=== PATIENT | male | born 1945 | race Caucasian/White ===

== ENCOUNTER → 2016-09-03 | Outpatient (CLI) | payer MEDICARE, BC ==
[2016-09-03 08:53] LABS: CH 34.9; CHCM 35.4; HDW 2.67; HGB 14.5 gm/dL (13.0-17.5); MCH 34.3 pg (25.0-35.0); MCHC 34.6 g/dL (31.0-37.0); MCV 99.1 fL (80.0-100.0); Mean Platelet Volume 8.6; RBC 4.24 m/uL (4.30-5.90); RDW 12.7 % (11.5-15.5); WBC 4.8 k/uL (3.8-10.6)
[2016-09-03 13:01] LABS: ALT 77 U/L (21-72); AST 51 U/L (17-59); Alkaline Phosphatase 74 U/L (38-126); Anion Gap 11 mmol/L; Blood Urea Nitrogen 24 mg/dL (9-20); Calcium 9.5 mg/dL (8.4-10.2); Carbon Dioxide 30 mmol/L (22-30); Chloride 103 mmol/L (98-107); Cholesterol 234 mg/dL (<200); Glucose 90 mg/dL (74-99); HDL Cholesterol 37 mg/dL (40-60); Non-African American GFR(MDRD) 58 (>60 ml/min/1.73 sqM); Potassium 4.8 mmol/L (3.5-5.1); Sodium 144 mmol/L (137-145); Total Bilirubin 1.1 mg/dL (0.2-1.3); Total Protein 7.5 g/dL (6.3-8.2); Triglycerides 259 mg/dL (<150)
[2016-09-03 14:21] LABS: Prostate Specific Antigen 1.37 ng/mL (0.00-4.00)
[2016-09-03 16:04] LABS: Hemoglobin A1C 5.6 % (4.2-6.1)
== END | disposition home or self-care (01) ==
LOC: LABWHC1 08:21
PROVIDERS: ATTEND Urology
DX: E78.5 Hyperlipidemia, unspecified (principal)
CPT/HCPCS: 36415; 80053; 80061; 83036; 84153; 84439; 84443; 85027

== ENCOUNTER → 2016-10-14 | Outpatient (CLI) | payer MEDICARE, BC ==
--- NOTE | 2016-10-14 11:18 | XR ---
EXAMINATION TYPE: XR chest 2V DATE OF EXAM: 10/14/2016 9:42 AM COMPARISON: None HISTORY: 71-year-old male with persistent cough TECHNIQUE: Frontal and lateral views FINDINGS: Heart is normal size. Mild elongation of the thoracic aorta. Pulmonary vasculature within normal limi ts. Scattered mild peribronchial cuffing. Strandy atelectasis in the lower lungs. No consolidation or pleural effusion. IMPRESSION: Some scattered mild peribronchial cuffing could reflect bronchitis or chronic asthma.
== END | disposition home or self-care (01) ==
LOC: RADXRMAIN 09:33
PROVIDERS: ATTEND Family Medicine
DX: R05 Cough (principal)
CPT/HCPCS: 71020

== ENCOUNTER → 2016-11-04 | Outpatient (CLI) | payer MEDICARE, BC | LOC: LABWHC1 09:17 | PROVIDERS: ATTEND Urology | DX: C61 Malignant neoplasm of prostate (principal) | CPT/HCPCS: 36415; 84153 ==

== ENCOUNTER → 2016-11-10 | Outpatient (CLI) | payer MEDICARE, BC ==
[2016-11-10 11:07] LABS: Total Bilirubin 0.9 mg/dL (0.2-1.3); Total Protein 7.7 g/dL (6.3-8.2)
[2016-11-10 13:18] LABS: Bilirubin, Delta 0.3 mg/dL (0.0-0.2)
== END | disposition home or self-care (01) ==
LOC: LABWHC1 10:35
DX: R94.5 Abnormal results of liver function studies (principal)
CPT/HCPCS: 36415; 80076

== ENCOUNTER → 2017-02-06 | Outpatient (CLI) | payer MEDICARE, BC | END | disposition home or self-care (01) | LOC: LABWHC1 09:21 | PROVIDERS: ATTEND Urology | DX: C61 Malignant neoplasm of prostate (principal) | CPT/HCPCS: 36415; 84153 ==

== ENCOUNTER → 2017-05-01 | Outpatient (CLI) | payer MEDICARE, BC ==
[2017-05-01 10:01] LABS: Bilirubin, Delta 0.1 mg/dL (0.0-0.2); Total Protein 7.2 g/dL (6.3-8.2)
== END | disposition home or self-care (01) ==
LOC: LABWHC1 08:57
DX: K76.0 Fatty (change of) liver, not elsewhere classified (principal)
CPT/HCPCS: 36415; 80076

== ENCOUNTER → 2017-09-30 | Outpatient (CLI) | payer MEDICARE, BC ==
[2017-09-30 09:13] LABS: HCT 39.3 % (39.0-53.0); HGB 13.3 gm/dL (13.0-17.5); MCH 33.5 pg (25.0-35.0); MCHC 33.9 g/dL (31.0-37.0); MCV 98.9 fL (80.0-100.0); Mean Platelet Volume 8.2; Platelet Count 192 k/uL (150-450); RBC 3.98 m/uL (4.30-5.90); RDW 12.5 % (11.5-15.5); WBC 3.8 k/uL (3.8-10.6)
[2017-09-30 09:33] LABS: ALT 27 U/L (21-72); AST 32 U/L (17-59); Albumin 4.2 g/dL (3.5-5.0); Alkaline Phosphatase 66 U/L (38-126); Anion Gap 8 mmol/L; Blood Urea Nitrogen 21 mg/dL (9-20); Calcium 9.5 mg/dL (8.4-10.2); Carbon Dioxide 31 mmol/L (22-30); Chloride 102 mmol/L (98-107); Glucose 87 mg/dL (74-99); INR 1.1 (<1.2); Potassium 4.8 mmol/L (3.5-5.1); Prothrombin Time 10.8 sec (9.0-12.0); Sodium 141 mmol/L (137-145); Total Bilirubin 1.1 mg/dL (0.2-1.3); Total Protein 6.9 g/dL (6.3-8.2)
[2017-09-30 09:47] LABS: Appearance,Urine Clear (Clear); Bilirubin,Urine Negative (Negative); Blood,Urine Negative (Negative); Color,Urine Light Yellow; Glucose,Urine (UA) Negative (Negative); Ketones,Urine Negative (Negative); Leukocyte Esterase,Urine Negative (Negative); PH, Urine 6.5 (5.0-8.0); Protein,Urine Negative (Negative); Specific Gravity,Urine 1.008 (1.001-1.035); Urobilinogen,Urine <2.0 mg/dL (<2.0)
== END | disposition home or self-care (01) ==
LOC: LABPAT 08:45
PROVIDERS: ATTEND Orthopaedic Surgery Sports Medicine
DX: Z01.812 Encounter for preprocedural laboratory examination (principal); Z79.01 Long term (current) use of anticoagulants
CPT/HCPCS: 36415; 80053; 80061; 81003; 82306; 84439; 84443; 85027; 85610; 85730; 87070

== ENCOUNTER → 2017-09-30 | Outpatient (CLI) | payer MEDICARE, BC ==
[2017-09-30 09:48] LABS: T4, Free (Free Thyroxine) 1.09 ng/dL (0.78-2.19)
== END | disposition home or self-care (01) ==
LOC: LABWHC1 08:35
PROVIDERS: ATTEND Family Medicine
DX: E78.5 Hyperlipidemia, unspecified (principal); E55.9 Vitamin D deficiency, unspecified
CPT/HCPCS: 36415; 80061; 82306; 84439; 84443

== ENCOUNTER 2017-10-09 07:45 | Day surgery (SDC) | payer MEDICARE, BC ==
[2017-10-05 10:16] VITALS: BMI 29.9
[~2017-10-09 07:45] MED LIST: LACTATED RINGERS 1,000 ML IV SCH; LIDOCAINE 1% 20 ML VIAL (10MG/ML) FOR IV START INTRADERMA PRN
[2017-10-09 08:05] VITALS: RESP 18; TEMP 98.1
[2017-10-09] MEDS ORDERED: fentaNYL (PF) 50 MCG/ML 2 ML AMP ONE (09:08)
[2017-10-09] MEDS ORDERED: PROPOFOL 10 MG/ML 20 ML VIAL IV ONE (09:08)
[2017-10-09] MEDS ORDERED: LIDOCAINE 1% INJ 10MG/ML (20 ML MDV) ONE (09:08)
--- NOTE | 2017-10-09 10:19 | P.PCN ---
Date of Procedure: 10/09/17 Procedure(s) Performed: Procedure: Total colonoscopy. Preoperative diagnosis: Screening for neoplasia, patient has history of polyps. Postoperative diagnosis: 1. Diverticulosis with no evidence of acute diverticulitis or strictures. 2. No polyps or cancer seen. Preparation: HalfLytely prep. Sedation: Was provided by anesthesia. Brief clinical history: The patient is a 72-year-old male who is scheduled for this evaluation for screening for neoplasia because of history of polyps. His last exam was around 5 years ago. The patient reported having had a bout of diverticulitis this summer. At this time, he has no abdominal complaints, bleeding or anemia. Procedure: With the patient on his left lateral decubitus position and after informed consent and adequate sedation the perianal area was inspected and it did not show any fissures or fistulas. There were no masses felt on digital rectal examination. The Olympus CFQ 160L video colonoscope was then inserted in the rectum and the usual fashion and advanced to the cecum. There were multiple diverticular orifices seen scattered mostly on the left side and in the distal transverse colon with no evidence of acute diverticulitis or strictures. The mucosa appeared healthy. No polyps or tumors were seen. I retroflexed the endoscope in the rectum before the endoscope was withdrawn. Low -grade internal hemorrhoids were noted with no evidence of bleeding and there was a prominent anal papilla. The patient tolerated the procedure well. Plan: The patient was reassured. Discussed dietary measures and local care for hemorrhoids. He will follow up with you as planned and I recommended repeat exam in 5 years.
[2017-10-09 10:24] VITALS: PULSE 51
[2017-10-09 10:57] VITALS: BP 134/80
== END 2017-10-09 11:20 | disposition home or self-care (01) ==
LOC: ORWHC2ENDO 07:45
DX: Z12.11 Encounter for screening for malignant neoplasm of colon (principal); K57.30 Diverticulosis of large intestine without perforation or abscess without bleeding; K64.8 Other hemorrhoids; J44.9 Chronic obstructive pulmonary disease, unspecified; K21.9 Gastro-esophageal reflux disease without esophagitis; M19.90 Unspecified osteoarthritis, unspecified site; Z86.010 Personal history of colon polyps; Z79.899 Other long term (current) drug therapy; Z79.1 Long term (current) use of non-steroidal anti-inflammatories (NSAID)
CPT/HCPCS: J2001; J3010; J2704; G0105; 45378

== ENCOUNTER 2017-10-19 11:41 | Day surgery (SDC) | payer MEDICARE, BC ==
[2017-10-12 11:14] VITALS: BMI 29.9
[~2017-10-19 11:41] MED LIST changes: +ACETAMINOPHEN TAB 500 MG TAB PO ONE; +DEXAMETHASONE SOD PHOSPHATE 10 MG/ML 1 ML VIAL IV ONE; +HYDROmorphone 0.5 MG/0.5 ML SYRINGE IVP PRN; -LIDOCAINE 1% 20 ML VIAL (10MG/ML) FOR IV START INTRADERMA PRN; +MELOXICAM 7.5 MG TAB PO ONE; +ONDANSETRON 4 MG/2 ML VIAL IVP ONE; +TRANEXAMIC ACID 1,000 MG in SODIUM CHLORIDE 0.9% 50 ML IVPB ONE; +ceFAZolin IN SWFI 2 GM/20 ML SYRINGE IVP ONE
[2017-10-19] MEDS ORDERED: LIDOCAINE 1% 20 ML VIAL (10MG/ML) FOR IV START INTRADERMA ONE (12:41)
[2017-10-19] MEDS ORDERED: NA PHOS,M-B/NA PHOS,DI-BA 133 ML ENEMA RECTAL PRN (13:43)
[2017-10-19] MEDS ORDERED: TEMAZEPAM 15 MG CAP PO PRN (13:43)
[2017-10-19] MEDS ORDERED: MORPHINE SULFATE 4 MG/ML SYRINGE IVP PRN ×3 (13:43)
[2017-10-19] MEDS ORDERED: NALOXONE 0.4 MG/ML 1 ML VIAL IV PRN ×2 (13:43→14:18)
[2017-10-19] MEDS ORDERED: ONDANSETRON 4 MG/2 ML VIAL IVP PRN (13:43)
[2017-10-19] MEDS ORDERED: HYDROcodone/APAP 7.5-325MG 1 EACH TAB PO PRN ×2 (13:43)
[2017-10-19] MEDS ORDERED: hydrOXYzine PAMOATE 25 MG CAP PO PRN (13:43)
[2017-10-19] MEDS ORDERED: DIAZEPAM 5 MG TAB PO PRN (13:43)
[2017-10-19] MEDS ORDERED: traMADol 50 MG TAB PO PRN (13:43)
[2017-10-19] MEDS ORDERED: ACETAMINOPHEN TAB 325 MG TAB PO PRN (13:43)
[2017-10-19] MEDS ORDERED: BISACODYL 10 MG SUPP RECTAL PRN (13:43)
[2017-10-19] MEDS ORDERED: MAGNESIUM HYDROXIDE 2,400 MG/10 ML CUP PO PRN (13:43)
[2017-10-19] MEDS ORDERED: LIDOCAINE 1% INJ 10MG/ML (20 ML MDV) ONE (13:45)
[2017-10-19] MEDS ORDERED: TRANEXAMIC ACID 1,000 MG/10 ML VIAL ONE (13:45)
[2017-10-19] MEDS ORDERED: fentaNYL (PF) 50 MCG/ML 2 ML AMP ONE (13:45)
[2017-10-19] MEDS ORDERED: diphenhydrAMINE 50 MG/ML 1 ML VIAL ONE (13:45)
[2017-10-19] MEDS ORDERED: SODIUM CHLORIDE 0.9% 100 ML BAG ONE (13:45)
[2017-10-19] MEDS ORDERED: MIDAZOLAM 2 MG/2 ML VIAL ONE (13:45)
[2017-10-19] MEDS ORDERED: MORPHINE SULFATE (PF) 0.3 MG/0.3 ML SYR ONE (13:45)
[2017-10-19] MEDS ORDERED: PROPOFOL 10 MG/ML 20 ML VIAL IV ONE (13:45)
[2017-10-19] MEDS ORDERED: NALBUPHINE 10 MG/ML AMPUL IV PRN (14:18)
[2017-10-19] MEDS: ROPIVACAINE 246.25 MG, EPINEPHrine 0.5 MG, KETOROLAC 30 MG, cloNIDine HCL/PF 80 MCG, WA... MISCELLANE ONE ×10 (14:32→14:54)
[2017-10-19] MEDS ORDERED: ceFAZolin 3,000 MG in SODIUM CHLORIDE 0.9% IRRIGATIO 3,000 ML IRRIGATION ONE (14:35)
[2017-10-19] MEDS ORDERED: LACTATED RINGERS 1,000 ML IV ONE (14:36)
[2017-10-19] MEDS: LACTATED RINGERS 1,000 ML IV SCH (16:21)
--- NOTE | 2017-10-19 16:52 | XR ---
EXAMINATION TYPE: XR knee limited RT DATE OF EXAM: 10/19/2017 COMPARISON: NONE HISTORY: Postop TECHNIQUE: 2 views FINDINGS: There is a right knee prosthesis. Components appear in anatomic position. IMPRESSION: Right knee prosthesis without evidence of complicating process.
--- NOTE | 2017-10-19 17:00 | OP ---
OPERATIVE REPORT DATE OF PROCEDURE: 10/19/2017 SURGEON: Adalberto Jaquez MD. DIGITAL COMPUTER SYSTEMS ANALYST: Benito ZHANG. PREOPERATIVE DIAGNOSIS: Right knee osteoarthrosis. POSTOPERATIVE DIAGNOSIS: Right knee osteoarthrosis. OPERATION: Right total knee arthroplasty. ANESTHESIA: Spinal with sedation. ESTIMATED BLOOD LOSS: 100 mL. TOURNIQUET TIME: 51 minutes at 250 mmHg. COMPLICATIONS: None apparent. DRAINS: None. DISPOSITION: Postanesthesia care unit. INDICATIONS: Ming is a very pleasant 72-year-old male with longstanding history of right knee pain. History and physical examination are consist with advanced right knee osteoarthrosis. He has been through significant nonoperative management up to this point. Further treatment options were discussed and he has decided to go forward with a right total knee arthroplasty. The risks of procedure were discussed with him in detail. These risks include, but are not limited to risk of infection, nerve damage, bleeding, pain and risk of deep vein thrombosis which could lead to fatal pulmonary embolism. There is also risk of loosening of the implant which could require revision operation. The patient understands these risks. All of his questions were answered to his satisfaction. Appropriate informed consent was obtained. DESCRIPTION OF PROCEDURE: The patient identified in the preoperative holding area. Surgical sites marked by both the patient myself. He was given 2 g of Ancef IV for prophylactic purposes. He was then transferred to the operative suite, was placed supine on the operative table. Spinal anesthetic was then administered dosed per the anesthesia without apparent complication. Examination under anesthesia was then performed. The patient was 3-5 degrees shy of full extension. 110 degrees of flexion. Medial collateral ligament, lateral collateral ligament posterior cruciate ligaments were stable. Tourniquet was then placed high on the right upper thigh well-padded in preparation for surgery. The patient's right lower extremity was then prepped and draped in usual sterile fashion. Standard surgical pause undertaken to ensure that we were operating the correct site and that appropriate preoperative antibiotics were given. All staff in the room in agreement and we proceeded. The outlines of the patella were marked with a surgical pen. A 12 cm vertical incision centered over the patella was marked surgical pen. Leg was then exsanguinated with an Esmarch dressing. The knee was then flexed and tourniquet inflated to 250 mmHg. The total tourniquet time for the procedure was 51 minutes. Incision was then made with a 10 blade scalpel. Dissection was carried down sharply overlying fascia. Great care was taken to minimize the skin flaps. The knee was then exposed using a standard medial parapatellar approach. A small cuff of quadriceps tendon was left for suturing. He was in a bit of varus preoperatively. A standard medial release was then made. Superficial medial collateral ligament was then dissected off the bone around the posterior aspect of the proximal tibia. The medial meniscus was then excised as well. The lateral meniscus was also released anteriorly. The leg was then externally rotated. The patella was everted. The knee was flexed. The retractors were then placed to protect the collateral ligaments. I then proceeded to remove the infrapatellar fat pad. This was excised sharply tangentially with fibers of the patellar tendon. I then proceeded to remove peripheral osteophytes. This was done with a rongeur. I then proceeded with the distal femoral resection. He did have a small flexion contracture. I planned to take 2 mm extra resection from the distal femur. The femoral canal was entered in the midline of the femur approximately 10 mm anterior to the origin of the posterior cruciate ligament. The rhonda was then advanced down the center of the femur and placed intramedullary. Based on preop radiographs, the angle between the anatomic and mechanical axis of the femur was approximately 4-5 degrees. The valgus angle of this femoral cutting guide was then set at 4 degrees for the right knee. The distal femoral cutting guide was then advanced over the intramedullary rhonda. This was seated firmly against the femur. I then as mentioned planned to take 11 mm off the distal femur. The cutting block was then secured onto the femur with pins. The jig was then removed. The distal femoral cut was made through the slot of the block. The pins were then removed. The distal femoral cutting block was removed. The accuracy of the distal femoral cuts was checked with 2 flat bars. I then proceed with femoral sizing. Posterior referencing sizing guide was held firmly against the resected distal surface of the femur. Posterior condyles were then resting on the posterior plane of the guide. The sizing stylus was then placed onto the anterior femur. The size was measured as a size 11. I then assessed for femoral rotation. Plan was for 3 degrees of external rotation. 3 degrees external rotation was placed onto the jig. These holes were then marked. I then confirmed the rotation by 3 separate methods. This was done using the epicondylar axis as well as [place] line and posterior referencing. It was deemed that the external rotation was proper. I then went forward placing the femoral cutting block. This was placed over the previously placed pin holes. The Jose wing was then placed onto the anterior slots to ensure that we would not notch the anterior femur with the anterior femoral cut. I then proceed with the anterior femoral cut. This was flush with the anterior cortex of the femur. Posterior cuts were then made followed by the anterior chamfer cut, then the posterior chamfer cut. The cutting block was then removed. Throughout the resection, the collateral ligaments were protected with retractors. I then placed a trial size 11 femur. It fit very nice medial-lateral and fit flush with the distal end of the femur. The drill holes were then made. I then proceed with the tibial cut. Planned for cruciate retaining knee. The guide was placed and set for varus valgus and for slope. The height was set for approximate 2 mm resection from the medial tibial plateau which was the lower side. I was happy with the alignment amount of resection. The cutting block was then pinned to the proximal tibia. The alignment rhonda was removed and the proximal tibia was resected with a reciprocating saw. Again this was done with retractors protecting the collateral ligaments as well as the posterior cruciate ligament. I then proceeded to evaluate the flexion and extension gaps. A 10 mm block was placed. The flexion-extension gaps were equal. I then proceeded with resection of posterior osteophytes. Very minimal posterior osteophytes. This was done using a curved osteotome. This resected the posterior osteophytes and posterior capsule stripping was done off the posterior aspect of the femur at this time. The osteophytes were removed. I then proceeded to resect the patella. The thickness of patella was measured using the caliper. The thickness was 25 mm. The thickness of the anticipated patellar dome was then taken into account. Resection was then performed and confirmed to be equal in 4 quadrants using a caliper. Approximately 14 mm of bone remained after the resection. A 38 x 9.5 standard patellar trial was then placed. The pin holes were drilled. The trial was then placed. I then proceed to size the tibial plate. A size G tibial plate fit very nicely. I then placed the trial femur tibial tray and patellar button. A 10 mm trial tibial insert was also placed. The components fit very nicely. He had full extension and flexion. The extension and flexion gaps were equal and stable to both varus and valgus stress. The patella tracked appropriately. The tibial tray rotation was marked with a Bovie. This was externally rotated properly. I then proceed with tibial preparation. I first drilled the femoral holes removed femoral component. The tibial tray was then set for proper external rotation as well as mediolateral placement onto the tibia. It was then pinned into place. We then proceeded with punching the keel. I then decided to proceed with cementing of all of our components. The knee was thoroughly irrigated with sterile saline solution via pulse lavage. The lateral geniculate artery was identified and cauterized. All blood was removed from the bone of the tibia femur and patella with pulse lavage. I then proceeded with cementing. Two packs of antibiotic bone cement prepared on the back table by the surgical technology instructor. I then proceeded with cementing the tibia first. The cement was impacted into the keel as well as deeply seated into the bone. A 2nd coat of cement was then placed. The tibia was then impacted into place. Excess cement was removed with [place]'s and jokers. I then proceed with cementing of the femoral component. Femoral component was also cemented using standard technique. Excess cement was removed. A 10 mm trial insert was then placed into the knee. It was brought into full extension with a constant axial load placed until the cement hardened. The patellar component was then cemented. This was held firmly with a compressive device until the cement had dried. When the cement dried, the knee was taken out of extension. All excess cement was removed from around the prosthesis. I then trialed the knee with a 10 mm insert. The flexion-extension gaps were appropriate. The knee was stable. It came into full extension. I decided to go forward with a 10 mm cross-linked cruciate-retaining tibial insert. Polyethylene was then placed onto the tibial tray and locked into place. The knee was then reduced. The knee was again further irrigated with sterile saline solution with antibiotic added. The tourniquet was then deflated. Total tourniquet time for the procedure was 51 minutes at 250 mmHg. Final components were Sherron persona size 11 cruciate-retaining femoral component, a size G tibial tray, a 10 mm medial congruent cruciate-retaining polyethylene insert and a 38 x 9.5 mm patella. I then proceeded with closure. Again, the knee was thoroughly irrigated. The quadriceps tendon and the medial retinaculum were reapproximated with #2 Ethibond suture. The extensor mechanism was then closed with a running #2 Quill suture. Subcutaneous tissues were then closed with 2-0 Vicryl suture. The skin was closed with a running 3-0 Quill suture. Dermabond was applied to the incision. Sterile compressive dressing was then applied. All sponge, needle counts were deemed correct prior to closure. The patient tolerated the procedure without apparent complication. He was transferred recovery room in stable condition. MMODL / IJN: [id number] /
[2017-10-19] MEDS ORDERED: SENNOSIDES-DOCUSATE SODIUM 1 EACH TAB PO SCH (21:00)
[2017-10-19] MEDS: ASPIRIN 325 MG TAB PO SCH (22:22)
[2017-10-19] MEDS: ceFAZolin IN SWFI 2 GM/20 ML SYRINGE IVP SCH (22:22)
[2017-10-19] MEDS: diphenhydrAMINE 50 MG/ML 1 ML VIAL IVP PRN (23:22)
[2017-10-19] MEDS ORDERED: ARTIFICIAL TEARS-HYPROMELLOSE DROPS 15 ML BTL BOTH EYES PRN (23:33)
[2017-10-19] MEDS ORDERED: METOCLOPRAMIDE 5 MG/ML 2 ML VIAL IVP PRN (23:39)
[2017-10-20] MEDS: LACTATED RINGERS 1,000 ML IV SCH ×2 (00:55→05:54)
[2017-10-20] MEDS: ceFAZolin IN SWFI 2 GM/20 ML SYRINGE IVP SCH (05:55)
[2017-10-20 07:18] VITALS: BP 115/62; PULSE 69; RESP 16; TEMP 97.5
[2017-10-20] MEDS ORDERED: PSYLLIUM HUSK 100% 6 GM PACKET PO SCH (07:30)
[2017-10-20] MEDS: ASPIRIN 325 MG TAB PO SCH (07:31)
[2017-10-20 07:34] LABS: Basophils % (A) 0 %; Eosinophils % (A) 0 %; HCT 32.9 % (39.0-53.0); HGB 11.7 gm/dL (13.0-17.5); Lymphocytes # (A) 1.2 k/uL (1.0-4.8); Lymphocytes % (A) 11 %; MCH 33.8 pg (25.0-35.0); MCHC 35.4 g/dL (31.0-37.0); MCV 95.4 fL (80.0-100.0); Mean Platelet Volume 7.8; Monocytes # (A) 0.6 k/uL (0-1.0); Monocytes % (A) 6 %; Neutrophils # (A) 8.6 k/uL (1.3-7.7); Neutrophils % (A) 82 %; Platelet Count 198 k/uL (150-450); RBC 3.45 m/uL (4.30-5.90); RDW 12.5 % (11.5-15.5); WBC 10.5 k/uL (3.8-10.6)
[2017-10-20] MEDS ORDERED: SYMBICORT 160-4.5 MCG INHALER INHALATION SCH (08:00)
--- NOTE | 2017-10-20 08:19 | P.CONS ---
History of Present Illness - Reason for Consult Consult date: 10/20/17 Medical management - Chief Complaint Status post knee arthroplasty. - History of Present Illness This is a consultation note on a 72-year-old white male with history of asthma who is status post knee arthroplasty. The patient is doing quite well. He did have one episode of dizziness yesterday. We suspect this is vasovagal related to recent anesthesia and its concurrent medications. No sniffing chest pain or shortness of breath. No nausea, vomiting or diarrhea. I am essentially consulted for appropriate medical management postoperatively. Review of Systems Constitutional: Denies chills, Denies fever Eyes: denies blurred vision, denies pain Ears, nose, mouth and throat: Denies headache, Denies sore throat Past Medical History Past Medical History: Asthma, Cancer, COPD, GERD/Reflux, Hyperlipidemia, Hypertension, Osteoarthritis (OA), Prostate Disorder Additional Past Medical History / Comment(s): HX PROSTATE CANCER; HAS MINOR BLADDER LEAKAGE. HX VERTIGO. VARICOSE VEINS. History of Any Multi-Drug Resistant Organisms: None Reported Past Surgical History: Orthopedic Surgery, Prostate Surgery Additional Past Surgical History / Comment(s): PROSTATECTOMY, WITH RADIATION 2008. LEFT KNEE; RT ELBOW; LT THUMB JOINT SURG. EXC RT WRIST BONE. SINUS, SEPTUM REPAIR. HEMORRHOIDECTOMY; VASCECTOMY. COLONOSCOPY 10/09/17. TRK 10/19/17 Past Anesthesia/Blood Transfusion Reactions: No Reported Reaction Past Psychological History: No Psychological Hx Reported Smoking Status: Former smoker Past Alcohol Use History: Occasional Additional Past Alcohol Use History / Comment(s): SMOKED 30 YEARS, 1 PPD OR LESS , QUIT 1993. Past Drug Use History: None Reported - Past Family History Mother Family Medical History: Cancer Sister(s) Family Medical History: Pulmonary Embolus Medications and Allergies Home Medications Medication Instructions Recorded Confirmed Type Ascorbic Acid [Vitamin C] 500 mg PO DAILY 06/04/16 10/19/17 History Budesonide-Formot 160-4.5 Mcg 2 puff INHALATION BID 06/04/16 10/19/17 History [Symbicort 160-4.5 Mcg Inhaler] Calcium Carbonate/Vitamin D3 1 each PO DAILY 06/04/16 10/19/17 History [Caltrate 600 Plus D3 Tablet] Cetirizine HCl [Zyrtec] 10 mg PO HS 06/04/16 10/19/17 History Cholecalciferol (Vitamin D3) 5,000 unit PO DAILY 06/04/16 10/19/17 History [Vitamin D3] Montelukast [Singulair] 10 mg PO DAILY 06/04/16 10/19/17 History Multivit-Mins/Iron/Folic/Lycop 1 tab PO DAILY 06/04/16 10/19/17 History [Centrum Men's Tablet] [place]-3 Fatty Acids/Fish Oil [Fish 1 each PO BID 06/04/16 10/19/17 History Oil 1,000 mg Softgel] Omeprazole [PriLOSEC] 20 mg PO BID 06/04/16 10/19/17 History Valsartan/Hydrochlorothiazide 1 tab PO DAILY 06/04/16 10/19/17 History [Diovan Hct 160-12.5 mg Tab] Acetaminophen [Tylenol Arthritis] 1,300 mg PO BID PRN 10/05/17 10/19/17 History Albuterol Sulfate [Proair Hfa] 1 - 2 puff INHALATION Q6HR PRN 10/05/17 10/19/17 History Bicalutamide [Casodex] 50 mg PO DAILY 10/05/17 10/19/17 History Naproxen Sodium [Aleve] 220 mg PO BID 10/05/17 10/19/17 History Turmeric/Curcumin 500 mg PO DAILY 10/05/17 10/19/17 History Eye Lubricant Combination No.1 1 applic BOTH EYES BID PRN 10/12/17 10/19/17 History [Freshkote] Lysine [l-Lysine] 1,000 mg PO DAILY 10/12/17 10/19/17 History Psyllium Husk (with Sugar) 1 tbsp PO BID 10/12/17 10/19/17 History [Metamucil Powder] Allergies Allergy/AdvReac Type Severity Reaction Status Date / Time milk Allergy Unknown Verified 10/16/17 13:31 Physical Exam Vitals: Vital Signs Temp Pulse Pulse Pulse Pulse Resp BP 10/20/17 07:26 16 10/20/17 07:11 97.5 F L 69 16 10/20/17 05:00 18 10/20/17 03:00 18 10/20/17 01:34 98.0 F 67 16 105/67 10/20/17 01:00 16 10/19/17 23:00 16 03/15/18 21:00 14 10/19/17 19:18 10/19/17 19:00 97.4 F L 61 16 110/75 10/19/17 18:45 71 144/75 10/19/17 18:30 62 129/77 10/19/17 18:15 74 130/79 10/19/17 18:00 62 141/77 10/19/17 17:45 60 130/74 10/19/17 17:32 17 10/19/17 17:30 66 144/77 10/19/17 17:15 69 123/78 10/19/17 17:00 97.8 F 63 20 125/77 10/19/17 16:30 60 18 112/61 10/19/17 16:15 62 18 102/54 10/19/17 15:56 96.8 F L 70 14 122/70 10/19/17 12:44 97.9 F 67 16 120/68 BP Pulse Ox 10/20/17 07:26 10/20/17 07:11 115/62 93 L 10/20/17 05:00 98 10/20/17 03:00 98 10/20/17 01:34 96 10/20/17 01:00 10/19/17 23:00 10/19/17 21:00 10/19/17 19:18 93 L 10/19/17 19:00 93 L 10/19/17 18:45 92 L 10/19/17 18:30 95 10/19/17 18:15 93 L 10/19/17 18:00 92 L 10/19/17 17:45 96 10/19/17 17:32 10/19/17 17:30 96 10/19/17 17:15 92 L 10/19/17 17:00 94 L 10/19/17 16:30 93 L 10/19/17 16:15 95 10/19/17 15:56 95 10/19/17 12:44 95 Intake and Output 10/19/17 10/20/17 10/20/17 22:59 06:59 14:59 Intake Total 318 1280 Output Total 660 25 Balance -342 1255 Intake: IV 200 Intake, IV Titration 1000 Amount Lactated Ringers 1,000 ml 1000 @ 100 mls/hr IV .Q10H [facility] Rx#:[id number] Oral 118 280 Output: Urine 560 25 Estimated Blood Loss 100 Other: Voiding Method Urinal Urinal # Voids 1 2 Weight 108.862 kg - Constitutional General appearance: average body habitus - EENT Eyes: EOMI - Neck Neck: no lymphadenopathy - Respiratory Respiratory: bilateral: CTA - Cardiovascular Rhythm: regular Heart sounds: normal: S1, S2 Abnormal Heart Sounds: no S3 Gallop - Gastrointestinal General gastrointestinal: soft, no tenderness - Neurologic Neurologic: CNII-XII intact Results CBC & Chem 7: 10/20/17 07:00 Labs: Abnormal Lab Results - Last 24 Hours (Table) 10/20/17 Range/Units 07:00 RBC 3.45 L (4.30-5.90) m/uL Hgb 11.7 L (13.0-17.5) gm/dL Hct 32.9 L (39.0-53.0) % Neutrophils # 8.6 H (1.3-7.7) k/uL Assessment and Plan (1) Asthma Current Visit: Yes Status: Acute Code(s): J45.909 - UNSPECIFIED ASTHMA, UNCOMPLICATED SNOMED Code(s): 164634598 (2) HTN (hypertension) Current Visit: Yes Status: Acute Code(s): I10 - ESSENTIAL (PRIMARY) HYPERTENSION SNOMED Code(s): 66632520 (3) Knee osteoarthritis Current Visit: Yes Status: Acute Code(s): M17.10 - UNILATERAL PRIMARY OSTEOARTHRITIS, UNSPECIFIED KNEE SNOMED Code(s): 003585937 Plan: Reconcile medications. Check CBC in a.m. Otherwise, he is a full code. See orders otherwise. Dr. Mcghee's group will be covering for the weekend. Anticipate discharge in the next 2-3 days. Time with Patient: Less than 30
[2017-10-20] MEDS ORDERED: DOCUSATE 100 MG CAP PO SCH (09:00)
[2017-10-20] MEDS ORDERED: MONTELUKAST 10 MG TAB PO SCH (09:00)
[2017-10-20] MEDS ORDERED: HYDROCHLOROTHIAZIDE 12.5 MG CAP PO SCH (09:00)
[2017-10-20] MEDS ORDERED: VALSARTAN 160 MG TAB PO SCH (09:00)
[2017-10-20] MEDS ORDERED: PANTOPRAZOLE 40 MG TABLET PO SCH (09:00)
[2017-10-20] MEDS ORDERED: CURCUMIN PO SCH (09:00)
[2017-10-20] MEDS ORDERED: BICALUTAMIDE 50 MG TAB PO SCH (09:00)
[2017-10-20] MEDS ORDERED: NON-FORMULARY DRUG (Omega-3 Fatty Acids/Fish Oil [Fish Oil 1,000 Mg Softgel] 1 EACH) PO SCH (09:00)
[2017-10-20] MEDS ORDERED: TURMERIC PO SCH (09:00)
[2017-10-20] MEDS ORDERED: LYSINE 1000 MG PO SCH (09:00)
--- NOTE | 2017-10-20 09:09 | P.DS ---
Providers Expected date of discharge: 10/20/17 Attending physician: Adalberto Jaquez Consults: 10/19/17 13:43 Consult Physician Routine Consulting Provider: Juaquin Salazar Consult Reason/Comments: post op medical management Do you want consulting provider notified?: Yes Primary care physician: Juaquin Salazar - Discharge Diagnosis(es) (1) Knee osteoarthritis Patient was admitted to the OR on 10/19/2017 to undergo Right Total Knee Arthroplasty. He had failed conservative measures as an outpatient and desired to proceed with elective surgery after given informed consent He underwent the above procedure which he tolerated well without complication. Postoperative hospital course has remained without complication. On day of discharge he is afebrile, vital signs stable, labs within acceptable ranges, tolerating by mouth meds and diet, voiding without difficulty, positive flatus, denies abdominal pain or calf pain, pain is controlled on oral pain medication and has no new complaints. Wound is benign, neurovascular status is intact, calf is soft and nontender, abdomen soft and nontender. Review of systems is negative for numbness, tingling, fever, chills, chest pain, shortness breath, nausea, vomiting, dizziness, headaches, slurred speech or other. Current Visit: Yes Status: Acute Priority: Medium Procedures: Right TKA Patient Condition at Discharge: Good Plan - Discharge Summary Discharge Rx Participant: No New Discharge Prescriptions: New Aspirin 325 mg PO BID #60 tab Docusate [Colace] 100 mg PO BID #60 capsule HYDROcodone/APAP 7.5-325MG [[place] 7.5-325] 1 - 2 each PO Q6HR PRN #90 tab PRN Reason: Pain hydrOXYzine PAMOATE [Vistaril] 25 mg PO TID PRN #60 cap PRN Reason: Pain No Action Budesonide-Formot 160-4.5 Mcg [Symbicort 160-4.5 Mcg Inhaler] 2 puff INHALATION BID Ascorbic Acid [Vitamin C] 500 mg PO DAILY Valsartan/Hydrochlorothiazide [Diovan Hct 160-12.5 mg Tab] 1 tab PO DAILY Omeprazole [PriLOSEC] 20 mg PO BID [place]-3 Fatty Acids/Fish Oil [Fish Oil 1,000 mg Softgel] 1 each PO BID Multivit-Mins/Iron/Folic/Lycop [Centrum Men's Tablet] 1 tab PO DAILY Montelukast [Singulair] 10 mg PO DAILY Cholecalciferol (Vitamin D3) [Vitamin D3] 5,000 unit PO DAILY Cetirizine HCl [Zyrtec] 10 mg PO HS Calcium Carbonate/Vitamin D3 [Caltrate 600 Plus D3 Tablet] 1 each PO DAILY Naproxen Sodium [Aleve] 220 mg PO BID Bicalutamide [Casodex] 50 mg PO DAILY Albuterol Sulfate [Proair Hfa] 1 - 2 puff INHALATION Q6HR PRN PRN Reason: Dyspnea Acetaminophen [Tylenol Arthritis] 1,300 mg PO BID PRN PRN Reason: Pain Turmeric/Curcumin 500 mg PO DAILY Eye Lubricant Combination No.1 [Freshkote] 1 applic BOTH EYES BID PRN PRN Reason: DRY EYES Lysine [l-Lysine] 1,000 mg PO DAILY Psyllium Husk (with Sugar) [Metamucil Powder] 1 tbsp PO BID Discharge Medication List Ascorbic Acid [Vitamin C] 500 mg PO DAILY 06/04/16 [History] Budesonide-Formot 160-4.5 Mcg [Symbicort 160-4.5 Mcg Inhaler] 2 puff INHALATION BID 06/04/16 [History] Calcium Carbonate/Vitamin D3 [Caltrate 600 Plus D3 Tablet] 1 each PO DAILY 06/04 [History] Cetirizine HCl [Zyrtec] 10 mg PO HS 06/04/16 [History] Cholecalciferol (Vitamin D3) [Vitamin D3] 5,000 unit PO DAILY 06/04/16 [History] Montelukast [Singulair] 10 mg PO DAILY 06/04/16 [History] Multivit-Mins/Iron/Folic/Lycop [Centrum Men's Tablet] 1 tab PO DAILY 06/04/16 [ History] [place]-3 Fatty Acids/Fish Oil [Fish Oil 1,000 mg Softgel] 1 each PO BID 06/04/16 [History] Omeprazole [PriLOSEC] 20 mg PO BID 06/04/16 [History] Valsartan/Hydrochlorothiazide [Diovan Hct 160-12.5 mg Tab] 1 tab PO DAILY [History] Acetaminophen [Tylenol Arthritis] 1,300 mg PO BID PRN 10/05/17 [History] Albuterol Sulfate [Proair Hfa] 1 - 2 puff INHALATION Q6HR PRN 10/05/17 [History] Bicalutamide [Casodex] 50 mg PO DAILY 10/05/17 [History] Naproxen Sodium [Aleve] 220 mg PO BID 10/05/17 [History] Turmeric/Curcumin 500 mg PO DAILY 10/05/17 [History] Eye Lubricant Combination No.1 [Freshkote] 1 applic BOTH EYES BID PRN 10/12/17 [ History] Lysine [l-Lysine] 1,000 mg PO DAILY 10/12/17 [History] Psyllium Husk (with Sugar) [Metamucil Powder] 1 tbsp PO BID 10/12/17 [History] Aspirin 325 mg PO BID #60 tab 10/20/17 [Rx] Docusate [Colace] 100 mg PO BID #60 capsule 10/20/17 [Rx] HYDROcodone/APAP 7.5-325MG [[place] 7.5-325] 1 - 2 each PO Q6HR PRN #90 tab [Rx] hydrOXYzine PAMOATE [Vistaril] 25 mg PO TID PRN #60 cap 10/20/17 [Rx] Follow up Appointment(s)/Referral(s): Adalberto Jaquez MD [STAFF PHYSICIAN] - 2 Weeks Activity/Diet/Wound Care/Special Instructions: Take meds as directed Weight bear as tolerated Keep wound clean and dry F/U with Dr. Jaquez Discharge Disposition: HOME WITH HOME HEALTH SERVICES
--- NOTE | 2017-10-20 09:30 | P.PN ---
Progress Note - Text Anesthesia POD 1. Patient is status post right TKR under spinal anesthesia with intra-thecal preservative free morphine 300 g. Minimal pruritus, excellent post-op analgesia, and no headache or other complications.
[2017-10-20] MEDS: diphenhydrAMINE 50 MG/ML 1 ML VIAL IVP PRN (10:53)
[2017-10-20] MEDS ORDERED: MULTIVITAMINS, THERA 1 EACH TAB PO SCH ×2 (12:00)
[2017-10-20] MEDS ORDERED: CALCIUM CARB-VIT D 500MG-200UN 1 EACH TAB PO SCH (12:00)
[2017-10-20] MEDS ORDERED: ASCORBIC ACID 500 MG TAB PO SCH (12:00)
[2017-10-20] MEDS ORDERED: CHOLECALCIFEROL 1,000 UNIT TAB PO SCH (12:00)
[2017-10-20] MEDS ORDERED: HYDROmorphone 2 MG TAB PO PRN ×3 (13:56→13:58)
[2017-10-20] MEDS ORDERED: LORATADINE 10 MG TAB PO SCH (21:00)
== END 2017-10-20 14:00 | disposition home health service (06) ==
LOC: OR 11:41 → EDSTATUS 13:40 → 3SUR 15:45 → OR 10-20 14:00
PROVIDERS: ATTEND Orthopaedic Surgery Sports Medicine
DX: M17.11 Unilateral primary osteoarthritis, right knee (principal); I10 Essential (primary) hypertension; E78.5 Hyperlipidemia, unspecified; J44.9 Chronic obstructive pulmonary disease, unspecified; K21.9 Gastro-esophageal reflux disease without esophagitis; Z79.899 Other long term (current) drug therapy; Z87.891 Personal history of nicotine dependence; Z85.46 Personal history of malignant neoplasm of prostate; Z92.3 Personal history of irradiation; Z91.011 Allergy to milk products; Z90.79 Acquired absence of other genital organ(s)
CPT/HCPCS: 27447; 94640; 97161; 88305; 85025; 88311; 73560; C1776; J2250; J0171; J2270; J1200 ×2; J1100; J2405; J0690 ×3; J2001; J2274; J3010; J1885; J2795; J2704; J0735; 93005

== ENCOUNTER → 2017-11-20 | Outpatient (CLI) | payer MEDICARE, BC ==
[2017-11-20 10:35] LABS: HCT 37.1 % (39.0-53.0); HGB 12.8 gm/dL (13.0-17.5); MCH 33.5 pg (25.0-35.0); MCHC 34.4 g/dL (31.0-37.0); MCV 97.3 fL (80.0-100.0); Mean Platelet Volume 7.8; Platelet Count 255 k/uL (150-450); RBC 3.82 m/uL (4.30-5.90); RDW 12.4 % (11.5-15.5)
[2017-11-20 10:48] LABS: Albumin 4.4 g/dL (3.5-5.0); Calcium 9.7 mg/dL (8.4-10.2); Potassium 4.9 mmol/L (3.5-5.1); Total Bilirubin 0.8 mg/dL (0.2-1.3); Total Protein 7.1 g/dL (6.3-8.2)
== END | disposition home or self-care (01) ==
LOC: LABWHC1 09:54
DX: R74.8 Abnormal levels of other serum enzymes (principal)
CPT/HCPCS: 36415; 80053; 85027

== ENCOUNTER → 2018-01-30 | Outpatient (CLI) | payer MEDICARE, BC | END | disposition home or self-care (01) | LOC: LABWHC1 09:27 | PROVIDERS: ATTEND Urology | DX: C61 Malignant neoplasm of prostate (principal) | CPT/HCPCS: 36415; 84153 ==

== ENCOUNTER → 2018-06-05 | Outpatient (CLI) | payer MEDICARE, BC ==
[2018-06-05 16:16] LABS: Albumin 4.8 g/dL (3.80-4.90); Albumin/Globulin Ratio 2.53 (1.20-2.10); Bilirubin, Conjugated 0.2 mg/dL (0.20-0.40); Bilirubin,Unconjugated 0.5 mg/dL; Globulin 1.9 g/dL (2.1-3.7); Total Bilirubin 0.7 mg/dL (0.3-1.2); Total Protein 6.7 g/dL (6.2-8.2)
== END ==
LOC: LABWHC1 11:39
DX: K76.0 Fatty (change of) liver, not elsewhere classified (principal)
CPT/HCPCS: 36415; 80076

== ENCOUNTER → 2018-08-09 | Outpatient (CLI) | payer MEDICARE ==
[2018-08-09 17:16] LABS: Albumin 4.4 g/dL (3.80-4.90); Albumin/Globulin Ratio 2.44 (1.20-2.10); Anion Gap 9.5 mmol/L (4.00-12.00); Carbon Dioxide 29.5 mmol/L (21.6-31.8); Globulin 1.8 g/dL (1.6-3.3); LDL Cholesterol,Calculated 135.2 mg/dL (0.0-131.0); Potassium 4.8 mmol/L (3.5-5.5); Total Bilirubin 0.8 mg/dL (0.2-1.2); Total Protein 6.2 g/dL (6.2-8.2); VLDL Calculation 54.8 mg/dL (5.00-40.00)
[2018-08-09 17:25] LABS: T4, Free (Free Thyroxine) 1.2 ng/dL (0.80-1.80)
== END | disposition home or self-care (01) ==
LOC: LABWHC1 07:47
PROVIDERS: ATTEND Family Medicine
DX: Z00.00 Encounter for general adult medical examination without abnormal findings (principal); C61 Malignant neoplasm of prostate; R97.21 Rising PSA following treatment for malignant neoplasm of prostate; J45.909 Unspecified asthma, uncomplicated; E78.5 Hyperlipidemia, unspecified; M19.90 Unspecified osteoarthritis, unspecified site; Z85.46 Personal history of malignant neoplasm of prostate; Z79.899 Other long term (current) drug therapy
CPT/HCPCS: 36415; 80053; 80061; 82306; 84153; 84439; 84443

== ENCOUNTER → 2018-12-04 | Outpatient (CLI) | payer MEDICARE ==
[2018-12-04 19:03] LABS: ALT 30 U/L (10-49); AST 32 U/L (14-35); Albumin/Globulin Ratio 2.76 (1.60-3.17); Alkaline Phosphatase 75 U/L (41-126); Bilirubin, Conjugated <0.20 mg/dL (0.20-0.40); Globulin 1.7 g/dL (1.6-3.3); Total Bilirubin 0.7 mg/dL (0.3-1.2); Total Protein 6.4 g/dL (6.2-8.2)
== END | disposition home or self-care (01) ==
LOC: LABWHC1 14:12
DX: K76.0 Fatty (change of) liver, not elsewhere classified (principal)
CPT/HCPCS: 36415; 80076

== ENCOUNTER → 2019-02-04 | Outpatient (CLI) | payer MEDICARE | END | disposition home or self-care (01) | LOC: LABWHC1 10:06 | PROVIDERS: ATTEND Urology | DX: C61 Malignant neoplasm of prostate (principal); R97.21 Rising PSA following treatment for malignant neoplasm of prostate | CPT/HCPCS: 36415; 84153 ==

== ENCOUNTER → 2019-04-03 | Outpatient (CLI) | payer MEDICARE ==
[2019-04-03 15:59] LABS: African American GFR (CKD) 77.9 (60.0-200.0); Albumin 4.4 g/dL (3.80-4.90); Albumin/Globulin Ratio 2.32 (1.60-3.17); Anion Gap 9.6 mmol/L (4.00-12.00); BUN/Creat Ratio 22.73 Ratio (12.00-20.00); Calcium 9.2 mg/dL (8.7-10.3); Carbon Dioxide 26.4 mmol/L (21.6-31.8); Chol/HDL Ratio 5.12; Globulin 1.9 g/dL (1.6-3.3); LDL Cholesterol,Calculated 133.2 mg/dL (0.0-131.0); Potassium 4.3 mmol/L (3.5-5.5); Total Bilirubin 0.7 mg/dL (0.3-1.2); Total Protein 6.3 g/dL (6.2-8.2); VLDL Calculation 39.8 mg/dL (5.00-40.00)
== END | disposition home or self-care (01) ==
LOC: LABWHC1 08:38
PROVIDERS: ATTEND Family Medicine
DX: J30.9 Allergic rhinitis, unspecified (principal); J22 Unspecified acute lower respiratory infection; H65.91 Unspecified nonsuppurative otitis media, right ear
CPT/HCPCS: 36415; 80053; 80061; 83735

== ENCOUNTER → 2019-06-12 | Outpatient (CLI) | payer MEDICARE ==
[2019-06-12 17:35] LABS: Albumin 4.7 g/dL (3.80-4.90); Albumin/Globulin Ratio 2.47 (1.60-3.17); Bilirubin, Conjugated 0.2 mg/dL (0.20-0.40); Bilirubin,Unconjugated 0.5 mg/dL; Globulin 1.9 g/dL (1.6-3.3); Total Bilirubin 0.7 mg/dL (0.2-1.2); Total Protein 6.6 g/dL (6.2-8.2)
== END | disposition home or self-care (01) ==
LOC: LABWHC1 09:42
PROVIDERS: ATTEND Internal Medicine
DX: R74.8 Abnormal levels of other serum enzymes (principal)
CPT/HCPCS: 36415; 80076

== ENCOUNTER → 2019-08-12 | Outpatient (CLI) | payer MEDICARE ==
[2019-08-12 16:08] LABS: Albumin 4.5 g/dL (3.80-4.90); Albumin/Globulin Ratio 2.81 (1.60-3.17); Bilirubin, Conjugated 0.2 mg/dL (0.20-0.40); Bilirubin,Unconjugated 0.5 mg/dL; Globulin 1.6 g/dL (1.6-3.3); Total Bilirubin 0.7 mg/dL (0.2-1.2); Total Protein 6.1 g/dL (6.2-8.2)
== END | disposition home or self-care (01) ==
LOC: EEVIPCON 09:24 → LABWHC1 09:24
PROVIDERS: ATTEND Urology
DX: C61 Malignant neoplasm of prostate (principal); K76.0 Fatty (change of) liver, not elsewhere classified; R94.5 Abnormal results of liver function studies
CPT/HCPCS: 36415; 80076

== ENCOUNTER → 2020-03-09 | Outpatient (CLI) | payer MEDICARE | END | disposition home or self-care (01) | LOC: LABWHC1 08:48 | PROVIDERS: ATTEND Urology | DX: C61 Malignant neoplasm of prostate (principal) | CPT/HCPCS: 36415; 84153 ==

== ENCOUNTER → 2020-03-19 | Outpatient (CLI) | payer MEDICARE ==
[2020-03-19 07:49] LABS: Basophils % (A) 1 %; Eosinophils # (A) 0.3 k/uL (0-0.7); Eosinophils % (A) 7 %; HCT 38.6 % (39.0-53.0); HGB 13.2 gm/dL (13.0-17.5); Lymphocytes # (A) 1.6 k/uL (1.0-4.8); Lymphocytes % (A) 33 %; MCHC 34.3 g/dL (31.0-37.0); MCV 99.3 fL (80.0-100.0); Mean Platelet Volume 8.5; Monocytes # (A) 0.4 k/uL (0-1.0); Monocytes % (A) 9 %; Neutrophils # (A) 2.3 k/uL (1.3-7.7); Neutrophils % (A) 48 %; Platelet Count 197 k/uL (150-450); RBC 3.89 m/uL (4.30-5.90); RDW 12.7 % (11.5-15.5); WBC 4.8 k/uL (3.8-10.6)
[2020-03-19 11:40] LABS: African American GFR (CKD) 69.6 (60.0-200.0); Albumin 4.5 g/dL (3.80-4.90); Albumin/Globulin Ratio 2.25 (1.60-3.17); Anion Gap 8.8 mmol/L (4.00-12.00); BUN/Creat Ratio 17.5 Ratio (12.00-20.00); Calcium 9.3 mg/dL (8.7-10.3); Carbon Dioxide 28.2 mmol/L (21.6-31.8); Chol/HDL Ratio 5.13; LDL Cholesterol,Calculated 129.8 mg/dL (0.0-131.0); Non-African American GFR(CKD) 60.1 (60.0-200.0); Potassium 4.2 mmol/L (3.5-5.5); Total Bilirubin 0.7 mg/dL (0.3-1.2); Total Protein 6.5 g/dL (6.2-8.2); VLDL Calculation 35.2 mg/dL (5.00-40.00)
[2020-03-19 11:48] LABS: T4, Free (Free Thyroxine) 1.1 ng/dL (0.80-1.80)
== END | disposition home or self-care (01) ==
LOC: LABWHC1 07:12
PROVIDERS: ATTEND Family Medicine
DX: Z00.00 Encounter for general adult medical examination without abnormal findings (principal); J30.9 Allergic rhinitis, unspecified; J22 Unspecified acute lower respiratory infection
CPT/HCPCS: 36415; 80053; 80061; 84439; 84443; 85025

== ENCOUNTER → 2020-04-09 | Outpatient (CLI) | payer MEDICARE ==
--- NOTE | 2020-04-09 15:45 | US ---
EXAMINATION TYPE: US kidneys/renal and bladder DATE OF EXAM: 04/09/2020 COMPARISON: NONE CLINICAL HISTORY: R31.9 Hematuria. gross hematuria on and off ever since he has his prostate removed and radiation. EXAM MEASUREMENTS: Right Kidney: 10.6 x 5.5 x 5.4cm Left Kidney: 11.6 x 4.5 x 6.2 cm Right Kidney: No hydronephrosis or masses seen Left Kidney: No hydronephrosis or masses seen Bladder: wnl Bilateral Jets seen: yes There is no evidence for hydronephrosis at this point in time. No nephrolithiasis is seen. No jasmin s are identified. Cortical measured differentiation is maintained. The urinary bladder is anechoic. Bilateral ureteral jets are seen. Echogenic appearance of the liver could be due to underlying hepatic steatosis. IMPRESSION: Normal renal ultrasound.
== END | disposition home or self-care (01) ==
LOC: RADUSWWP 13:13
PROVIDERS: ATTEND Urology
DX: R31.9 Hematuria, unspecified (principal)
CPT/HCPCS: 76770

== ENCOUNTER → 2020-05-05 | Outpatient (CLI) | payer MEDICARE ==
[2020-05-05 12:34] LABS: HCT 39.1 % (39.0-53.0); MCH 33.5 pg (25.0-35.0); MCHC 33.4 g/dL (31.0-37.0); MCV 100.3 fL (80.0-100.0); Mean Platelet Volume 8.7; Platelet Count 208 k/uL (150-450); RBC 3.89 m/uL (4.30-5.90); WBC 5.1 k/uL (3.8-10.6)
== END | disposition home or self-care (01) ==
LOC: LABWHC1 10:11
PROVIDERS: ATTEND Urology
DX: R31.0 Gross hematuria (principal)
CPT/HCPCS: 36415; 85027

== ENCOUNTER → 2020-06-08 | Outpatient (CLI) | payer MEDICARE | END | disposition home or self-care (01) | LOC: LABWHC1 09:41 | PROVIDERS: ATTEND Urology | DX: C61 Malignant neoplasm of prostate (principal); R97.21 Rising PSA following treatment for malignant neoplasm of prostate | CPT/HCPCS: 36415; 84153 ==

== ENCOUNTER → 2020-06-15 | Outpatient (CLI) | payer MEDICARE ==
[2020-06-15 19:57] LABS: Albumin 4.6 g/dL (3.80-4.90); Albumin/Globulin Ratio 2.09 (1.60-3.17); Bilirubin, Conjugated 0.2 mg/dL (0.20-0.40); Bilirubin,Unconjugated 0.6 mg/dL; Globulin 2.2 g/dL (1.6-3.3); Total Bilirubin 0.8 mg/dL (0.2-1.2); Total Protein 6.8 g/dL (6.2-8.2)
== END | disposition home or self-care (01) ==
LOC: LABWHC1 09:37
PROVIDERS: ATTEND Internal Medicine
DX: K76.0 Fatty (change of) liver, not elsewhere classified (principal); R94.5 Abnormal results of liver function studies
CPT/HCPCS: 36415; 80076

== ENCOUNTER → 2020-08-17 | Outpatient (CLI) | payer MEDICARE | END | disposition home or self-care (01) | LOC: LABWHC1 10:21 | PROVIDERS: ATTEND Urology | DX: C61 Malignant neoplasm of prostate (principal) | CPT/HCPCS: 36415; 84153 ==

== ENCOUNTER → 2020-12-23 | Outpatient (CLI) | payer MEDICARE ==
[2020-12-23 11:09] LABS: Basophils # (A) 0.04 X 10*3/uL (0.00-0.10); Eosinophils # (A) 0.17 X 10*3/uL (0.04-0.35); Eosinophils % (A) 4.2 %; HCT 39.5 % (39.6-50.0); HGB 13.3 g/dL (13.0-17.0); Lymphocytes # (A) 1.46 X 10*3/uL (0.90-5.00); Lymphocytes % (A) 36.4 %; MCH 33.7 pg (27.0-32.0); MCHC 33.7 g/dL (32.0-37.0); Mean Platelet Volume 11.5 fL (9.5-12.2); Monocytes % (A) 12.5 %; Neutrophils # (A) 1.83 X 10*3/uL (1.80-7.70); Neutrophils % (A) 45.7 %; Platelet Count 211 X 10*3/uL (140-440); RBC 3.95 X 10*6/uL (4.40-5.60); RDW 12.3 % (11.5-14.5); WBC 4.01 X 10*3/uL (4.50-10.00)
[2020-12-23 14:53] LABS: African American GFR (CKD) 62.7 (60.0-200.0); Albumin 4.9 g/dL (3.80-4.90); Albumin/Globulin Ratio 2.23 (1.60-3.17); Anion Gap 6.2 mmol/L (4.00-12.00); BUN/Creat Ratio 16.15 Ratio (12.00-20.00); Carbon Dioxide 31.8 mmol/L (21.6-31.8); Chol/HDL Ratio 5.71; Globulin 2.2 g/dL (1.6-3.3); LDL Cholesterol,Calculated 156.8 mg/dL (0.0-131.0); Non-African American GFR(CKD) 54.1 (60.0-200.0); Potassium 4.7 mmol/L (3.5-5.5); Total Bilirubin 1.2 mg/dL (0.3-1.2); Total Protein 7.1 g/dL (6.2-8.2); VLDL Calculation 41.2 mg/dL (5.00-40.00)
[2020-12-23 15:02] LABS: T4, Free (Free Thyroxine) 1.2 ng/dL (0.80-1.80)
[2020-12-23 15:13] LABS: Prostate Specific Antigen 0.4 ng/mL (0.0-6.5)
== END | disposition home or self-care (01) ==
LOC: LABWHC1 07:44
PROVIDERS: ATTEND Family Medicine
DX: Z00.00 Encounter for general adult medical examination without abnormal findings (principal); C61 Malignant neoplasm of prostate; E78.5 Hyperlipidemia, unspecified; J30.9 Allergic rhinitis, unspecified
CPT/HCPCS: 36415; 80053; 80061; 84153; 84403; 84439; 84443; 85025

== ENCOUNTER → 2021-04-02 | Outpatient (CLI) | payer MEDICARE | END | disposition home or self-care (01) | LOC: LABWHC1 14:13 | PROVIDERS: ATTEND Urology | DX: C61 Malignant neoplasm of prostate (principal) | CPT/HCPCS: 36415; 84153; 84403 ==

== ENCOUNTER → 2021-06-07 | Outpatient (CLI) | payer MEDICARE ==
[2021-06-08 03:32] LABS: Testosterone <2.50 ng/mL (86.98-780.10)
== END | disposition home or self-care (01) ==
LOC: LABWHC1 14:13
PROVIDERS: ATTEND Urology
DX: C61 Malignant neoplasm of prostate (principal)
CPT/HCPCS: 36415; 84153; 84403

== ENCOUNTER → 2021-09-17 | Outpatient (CLI) | payer MEDICARE ==
[2021-09-17 11:02] LABS: Basophils # (A) 0.04 X 10*3/uL (0.00-0.10); Basophils % (A) 0.7 %; Eosinophils # (A) 0.21 X 10*3/uL (0.04-0.35); Eosinophils % (A) 3.8 %; HCT 40.2 % (39.6-50.0); HGB 13.8 g/dL (13.0-17.0); Immature Grans, Automated 0.2 %; Lymphocytes # (A) 2.19 X 10*3/uL (0.90-5.00); Lymphocytes % (A) 39.3 %; MCH 34.4 pg (27.0-32.0); MCHC 34.3 g/dL (32.0-37.0); MCV 100.2 fL (80.0-97.0); Monocytes # (A) 0.54 X 10*3/uL (0.20-1.00); Monocytes % (A) 9.7 %; NRBC Per 100 WBC 0 /100 WBCS (0.0-0.0); Neutrophils # (A) 2.58 X 10*3/uL (1.80-7.70); Neutrophils % (A) 46.3 %; Platelet Count 237 X 10*3/uL (140-440); RBC 4.01 X 10*6/uL (4.40-5.60); RDW 12.1 % (11.5-14.5); WBC 5.57 X 10*3/uL (4.50-10.00)
[2021-09-17 11:14] LABS: African American GFR (CKD) 68.6 (60.0-200.0); Albumin 4.6 g/dL (3.8-4.9); Albumin/Globulin Ratio 1.92 (1.60-3.17); Anion Gap 12.4 mmol/L (10.00-18.00); BUN/Creat Ratio 14.92 Ratio (12.00-20.00); Blood Urea Nitrogen 17.9 mg/dL (9.0-27.0); Calcium 9.5 mg/dL (8.7-10.3); Carbon Dioxide 26.6 mmol/L (20.0-27.5); Globulin 2.4 g/dL (1.6-3.3); Non-African American GFR(CKD) 59.2 (60.0-200.0); T4, Free (Free Thyroxine) 1.22 ng/dL (0.800-1.800); Total Bilirubin 0.6 mg/dL (0.30-1.20)
== END | disposition home or self-care (01) ==
LOC: LABWHC1 07:10
PROVIDERS: ATTEND Family Medicine
DX: K76.89 Other specified diseases of liver (principal); Z68.30 Body mass index [BMI] 30.0-30.9, adult; E78.5 Hyperlipidemia, unspecified; M12.9 Arthropathy, unspecified
CPT/HCPCS: 36415; 80053; 83036; 84439; 84443; 85025

== ENCOUNTER → 2021-10-05 | Outpatient (CLI) | payer MEDICARE ==
[2021-10-05 16:43] LABS: Testosterone <2.50 ng/mL (86.98-780.10)
== END | disposition home or self-care (01) ==
LOC: LABWHC1 10:41
PROVIDERS: ATTEND Urology
DX: C61 Malignant neoplasm of prostate (principal)
CPT/HCPCS: 36415; 84153; 84403

== ENCOUNTER → 2021-10-12 | Outpatient (CLI) | payer MEDICARE ==
--- NOTE | 2021-10-12 11:58 | US ---
EXAMINATION TYPE: US abdomen complete DATE OF EXAM: 10/12/2021 COMPARISON: None CLINICAL HISTORY: 76-year-old male K76.0 FATTY LIVER. Hx prostatectomy. TECHNIQUE: Multiple sonographic images of the abdomen are obtained. FINDINGS: EXAM MEASUREMENTS: Liver Length: 18.1 cm Gallbladder Wall: 0.29 cm CBD: 0.59 cm Spleen: 10.3 cm Right Kidney: 11.2 x 5.5 x 4.9 cm Left Kidney: 11.5 x 6.1 x 5.7 cm District Sales Manager notes: Limited due to body habitus and overlying bowel gas. Pancreas: Obscured by bowel gas shadowing. Only a small portion of the pancreatic neck is seen. Liver: Mildly enlarged, echogenic, and attenuating. Gallbladder: Appears distended measuring 10.2 cm in length and 4.8 cm wide. Cluster of hypoechoic ar eas seen along posterior wall: 1.1 cm in transverse. Possible gallbladder wall polyps . Reassess in 6 -8 weeks. Evidence for sonographic Jaquez's sign: No CBD: Appears wnl Spleen: Appears wnl Right Kidney: No hydronephrosis or masses seen Left Kidney: No hydronephrosis or masses seen Upper IVC: Appears wnl Abd Aorta: Limited, mid aorta appears borderline ectatic measuring 2.5 cm. IMPRESSION: 1. Mild hepatomegaly (18.1 cm) with at least moderate hepatic steatosis. 2. The gallbladder is mildly hydropic. This may relate to fasting state. If recurrent right upper festus drant pain or concern for gallbladder dysfunction, HIDA scan with ejection fraction can be considered . 3. In addition, there is a 1.1 cm nodular hypoechoic area along the posterior bladder wall. Possible gallbladder wall polyp. Reassess at 6 - 8 weeks to exclude other mass. 4. No biliary ductal dilatation.
== END | disposition home or self-care (01) ==
LOC: RADUSWWP 08:21
PROVIDERS: ATTEND Family Medicine
DX: K76.0 Fatty (change of) liver, not elsewhere classified (principal); R16.0 Hepatomegaly, not elsewhere classified; N32.89 Other specified disorders of bladder
CPT/HCPCS: 76700

== ENCOUNTER → 2022-01-05 | Outpatient (CLI) | payer MEDICARE ==
[2022-01-05 14:40] LABS: Basophils # (A) 0.03 X 10*3/uL (0.00-0.10); Basophils % (A) 0.7 %; Eosinophils # (A) 0.24 X 10*3/uL (0.04-0.35); Eosinophils % (A) 5.9 %; HCT 39.6 % (39.6-50.0); HGB 13.5 g/dL (13.0-17.0); Immature Grans, Automated 0.2 %; Lymphocytes # (A) 1.62 X 10*3/uL (0.90-5.00); Lymphocytes % (A) 39.8 %; MCH 34.8 pg (27.0-32.0); MCHC 34.1 g/dL (32.0-37.0); MCV 102.1 fL (80.0-97.0); Monocytes # (A) 0.46 X 10*3/uL (0.20-1.00); Monocytes % (A) 11.3 %; NRBC Per 100 WBC 0 /100 WBCS (0.0-0.0); Neutrophils # (A) 1.71 X 10*3/uL (1.80-7.70); Neutrophils % (A) 42.1 %; Platelet Count 210 X 10*3/uL (140-440); RBC 3.88 X 10*6/uL (4.40-5.60); RDW 12.5 % (11.5-14.5); WBC 4.07 X 10*3/uL (4.50-10.00)
[2022-01-05 15:03] LABS: ALT 18 U/L (10-49); AST 30 U/L (14-35); Albumin 4.6 g/dL (3.8-4.9); Albumin/Globulin Ratio 1.94 (1.60-3.17); Alkaline Phosphatase 65 U/L (41-126); Blood Urea Nitrogen 17.1 mg/dL (9.0-27.0); Calcium 9.7 mg/dL (8.7-10.3); Carbon Dioxide 26.2 mmol/L (20.0-27.5); Chloride 100 mmol/L (96-109); Chol/HDL Ratio 5.51 Ratio; Globulin 2.4 g/dL (1.6-3.3); Glucose 88 mg/dL (70-110); LDL Cholesterol,Calculated 160.6 mg/dL (0.0-131.0); Potassium 4.4 mmol/L (3.5-5.5); Sodium 138 mmol/L (135-145); Total Protein 6.9 g/dL (6.2-8.2)
[2022-01-05 16:38] LABS: Testosterone <2.50 ng/mL (86.98-780.10)
== END | disposition home or self-care (01) ==
LOC: LABWHC1 07:23
PROVIDERS: ATTEND Urology
DX: C61 Malignant neoplasm of prostate (principal)
CPT/HCPCS: 36415; 80053; 80061; 84153; 84403; 84439; 84443; 85025

== ENCOUNTER → 2022-02-17 | Outpatient (CLI) | payer MEDICARE ==
[2022-02-17 18:21] LABS: Basophils # (A) 0.03 X 10*3/uL (0.00-0.10); Basophils % (A) 0.9 %; Eosinophils # (A) 0.15 X 10*3/uL (0.04-0.35); Eosinophils % (A) 4.3 %; HCT 40.2 % (39.6-50.0); HGB 13.3 g/dL (13.0-17.0); Immature Grans, Automated 0.3 %; Lymphocytes # (A) 1.33 X 10*3/uL (0.90-5.00); Lymphocytes % (A) 38.6 %; MCH 34.4 pg (27.0-32.0); MCHC 33.1 g/dL (32.0-37.0); MCV 103.9 fL (80.0-97.0); Mean Platelet Volume 11.2 fL (9.5-12.2); Monocytes # (A) 0.37 X 10*3/uL (0.20-1.00); Monocytes % (A) 10.7 %; NRBC Per 100 WBC 0 /100 WBCS (0.0-0.0); Neutrophils # (A) 1.56 X 10*3/uL (1.80-7.70); Neutrophils % (A) 45.2 %; Platelet Count 221 X 10*3/uL (140-440); RBC 3.87 X 10*6/uL (4.40-5.60); RDW 12.5 % (11.5-14.5); WBC 3.45 X 10*3/uL (4.50-10.00)
[2022-02-17 18:44] LABS: African American GFR (CKD) 77.1 (60.0-200.0); Albumin 4.5 g/dL (3.8-4.9); Albumin/Globulin Ratio 2.3 (1.60-3.17); Anion Gap 10.6 mmol/L (10.00-18.00); BUN/Creat Ratio 15.32 Ratio (12.00-20.00); Blood Urea Nitrogen 16.7 mg/dL (9.0-27.0); Calcium 9.6 mg/dL (8.7-10.3); Non-African American GFR(CKD) 66.5 (60.0-200.0); Potassium 4.7 mmol/L (3.5-5.5); T4, Free (Free Thyroxine) 1.18 ng/dL (0.800-1.800); Total Bilirubin 0.7 mg/dL (0.30-1.20); Total Protein 6.5 g/dL (6.2-8.2)
== END | disposition home or self-care (01) ==
LOC: LABWHC1 10:58
PROVIDERS: ATTEND Family Medicine
DX: R00.2 Palpitations (principal)
CPT/HCPCS: 36415; 80053; 84439; 84443; 85025

== ENCOUNTER → 2022-02-22 | Outpatient (CLI) | payer MEDICARE ==
--- NOTE | 2022-02-25 12:57 | P.HOLTER ---
24 Hour Holter monitor note: Patient wore a Holter monitor for 24 hrs from 02/22/2022 through 02/23/2022. Findings: Patient's baseline heart rate was sinus rhythm. There were no signficant atrial fibrillation, atrial flutter, or ventricular tachycardia episodes. There were no significant pauses greater than 2 seconds. Patient's minimum heart rate was 44 bpm. Patient's maximum heart rate was 102 bpm. Patient's average heart rate was 64 bpm. There were a total of 2 PVCs which were asymptomatic There were 768 PACs There were 2 episodes of 5 beats of SVT No patient activated events Conclusions: 24-hour Holter monitor showing normal sinus rhythm, asymptomatic PVCs and PACs as well as 2 brief episodes of 5 beats SVT.
== END | disposition home or self-care (01) ==
LOC: RADECHMAIN 12:33
PROVIDERS: ATTEND Family Medicine
DX: R00.0 Tachycardia, unspecified (principal)
CPT/HCPCS: 93225; 93226

== ENCOUNTER → 2022-05-16 | Outpatient (CLI) | payer MEDICARE ==
[2022-05-16 16:44] LABS: Testosterone <2.50 ng/mL (86.98-780.10)
== END | disposition home or self-care (01) ==
LOC: LABWHC1 10:01
PROVIDERS: ATTEND Urology
DX: C61 Malignant neoplasm of prostate (principal)
CPT/HCPCS: 36415; 84153; 84403

== ENCOUNTER 2022-07-07 11:44 | Emergency (ER) | payer MEDICARE ==
[2022-07-07 12:16] VITALS: TEMP 98.2
[2022-07-07 13:19] LABS: RBC,Urine >182 /hpf (0-5); WBC,Urine 60 /hpf (0-5)
[2022-07-07 13:20] LABS: Appearance,Urine Bloody (Clear)
--- NOTE | 2022-07-07 13:35 | ED ---
Male Urogenital HPI - General Chief complaint: Urogenital Stated complaint: trouble urinating, blood clots in urine Time Seen by Provider: 07/07/22 12:27 Source: patient Mode of arrival: ambulatory Limitations: no limitations - History of Present Illness Initial comments: Patient is a 76-year-old male who presents due to trouble urinating. Patient states he has not been able to urinate in about 16 hours. Prior to this patient noticed small blood clots in his urine. 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 Patient has had issues with urinary retention before. He follows with Dr. Jean-Baptiste. He currently reports suprapubic tenderness. He denies fever, chills, other abdominal pain, nausea, vomiting, burning with urination, penile discharge, testicular pain. - Related Data Home Medications Medication Instructions Recorded Confirmed Ascorbic Acid [Vitamin C] 500 mg PO DAILY 06/04/16 05/11/20 Budesonide-Formot 160-4.5 Mcg 2 puff INHALATION BID 06/04/16 05/11/20 [Symbicort 160-4.5 Mcg Inhaler] Calcium Carbonate/Vitamin D3 1 each PO DAILY 06/04/16 05/11/20 [Caltrate 600 Plus D3 Tablet] Cetirizine HCl [Zyrtec] 10 mg PO DAILY 06/04/16 05/11/20 Cholecalciferol (Vitamin D3) 2,000 unit PO DAILY 06/04/16 05/11/20 [Vitamin D3] Montelukast [Singulair] 10 mg PO HS 06/04/16 05/11/20 Multivit-Mins/Iron/Folic/Lycop 1 tab PO DAILY 06/04/16 05/11/20 [Centrum Men's Tablet] [place]-3 Fatty Acids/Fish Oil [Fish 1 each PO BID 06/04/16 05/11/20 Oil 1,000 mg Softgel] Omeprazole [PriLOSEC] 40 mg PO DAILY 06/04/16 05/11/20 Valsartan/Hydrochlorothiazide 1 tab PO DAILY 06/04/16 05/11/20 [Diovan Hct 160-12.5 mg Tab] Acetaminophen [Tylenol Arthritis] 1,000 mg PO BID PRN 10/05/17 05/11/20 Albuterol Sulfate [Proair Hfa] 1 - 2 puff INHALATION Q6HR PRN 10/05/17 05/11/20 Bicalutamide [Casodex] 50 mg PO DAILY 10/05/17 05/11/20 Naproxen Sodium [Aleve] 220 mg PO BID 10/05/17 05/11/20 Turmeric/Curcumin 500 mg PO DAILY 10/05/17 05/11/20 Lysine [l-Lysine] 1,000 mg PO DAILY 10/12/17 05/11/20 Polyvinyl Alcohol/Povidone 1 applic BOTH EYES BID PRN 10/12/17 05/11/20 [Freshkote] Psyllium Husk (with Sugar) 1 tbsp PO BID 10/12/17 05/11/20 [Metamucil Powder] Previous Rx's Medication Instructions Recorded Docusate [Colace] 100 mg PO BID #60 capsule 10/20/17 Allergies Allergy/AdvReac Type Severity Reaction Status Date / Time milk Allergy SINUS Verified 07/07/22 12:16 SYMPTOMS Review of Systems ROS Statement: Those systems with pertinent positive or pertinent negative responses have been documented in the HPI. ROS Other: All systems not noted in ROS Statement are negative. Past Medical History Past Medical History: Asthma, Cancer, GERD/Reflux, Hypertension, Prostate Disorder Additional Past Medical History / Comment(s): PROSTATE CANCER History of Any Multi-Drug Resistant Organisms: None Reported Past Surgical History: Joint Replacement, Orthopedic Surgery Additional Past Surgical History / Comment(s): PROSTATECTOMY, WITH RADIATION 2008. LEFT KNEE; RT ELBOW; LT THUMB JOINT SURG. EXC RT WRIST BONE. SINUS, SEPTUM REPAIR. HEMORRHOIDECTOMY; VASCECTOMY. COLONOSCOPY, TOTAL RIGHT KNEE Past Anesthesia/Blood Transfusion Reactions: No Reported Reaction Past Psychological History: No Psychological Hx Reported Smoking Status: Former smoker - Past Family History Mother Family Medical History: Cancer Additional Family Medical History / Comment(s): BREAST CANCER Sister(s) Family Medical History: Pulmonary Embolus General Exam Limitations: no limitations General appearance: alert, in no apparent distress Head exam: Present: atraumatic, normocephalic, normal inspection Respiratory exam: Present: normal lung sounds bilaterally. Absent: respiratory distress, wheezes, rales, rhonchi, stridor Cardiovascular Exam: Present: regular rate, normal rhythm, normal heart sounds. Absent: systolic murmur, diastolic murmur, rubs, gallop, clicks GI/Abdominal exam: Present: soft, tenderness (Suprapubic), normal bowel sounds. Absent: distended, guarding, rebound, rigid Back exam: Present: normal inspection, full ROM. Absent: CVA tenderness (R), CVA tenderness (L), paraspinal tenderness, vertebral tenderness Neurological exam: Present: alert, oriented X3, CN II-XII intact Psychiatric exam: Present: normal affect, normal mood Skin exam: Present: warm, dry, intact, normal color. Absent: rash Course Vital Signs 07/07/22 07/07/22 12:13 14:10 Temperature 98.2 F Pulse Rate 65 61 Respiratory 16 18 Rate Blood Pressure 157/90 144/73 O2 Sat by Pulse 98 100 Oximetry Medical Decision Making - Medical Decision Making This is a 76-year-old male presenting with urinary retention. Bladder scan reveals > 600 mL Wilcox catheter placed with successful urine output. Gross hematuria noted. Discussed keeping the Wilcox in until urology follow-up versus taking it out. Patient would like to keep him. Patient will be discharged with Wilcox catheter care instructions. He will follow-up with Dr. Jean-Baptiste at earliest available appointment. Dr. King is my attending. - Lab Data Lab Results 07/07/22 Range/Units 13:00 Urine Appearance Bloody (Clear) Urine RBC >182 H (0-5) /hpf Urine WBC 60 H (0-5) /hpf Disposition Clinical Impression: Urinary retention, Irradiation cystitis with hematuria Disposition: HOME SELF-CARE Condition: Good Instructions (If sedation given, give patient instructions): Urinary Retention in Men (ED), Wilcox Catheter Placement and Care (ED), How to Change a Catheter Drainage Bag (DC) Additional Instructions: Please follow up with Dr. Jean-Baptiste today or tomorrow. Return to the emergency department experience new, concerning, or worsening symptoms. Is patient prescribed a controlled substance at d/c from ED?: No Referrals: Juaquin Salazar MD [Primary Care Provider] - 1-2 days Time of Disposition: 13:35
[2022-07-07 14:11] VITALS: BP 144/73; PULSE 61; RESP 18
== END 2022-07-07 14:11 | disposition home or self-care (01) ==
LOC: EC 11:44
DX: R33.9 Retention of urine, unspecified (principal); N30.41 Irradiation cystitis with hematuria; J45.909 Unspecified asthma, uncomplicated; I10 Essential (primary) hypertension; K21.9 Gastro-esophageal reflux disease without esophagitis; Z87.891 Personal history of nicotine dependence; Z79.899 Other long term (current) drug therapy; Z91.011 Allergy to milk products; Y84.2 Radiological procedure and radiotherapy as the cause of abnormal reaction of the patient, or of later complication, without mention of misadventure at the time of the procedure
CPT/HCPCS: 51702; 51798; 81001; 87086; 99283

== ENCOUNTER → 2022-11-02 | Outpatient (CLI) | payer MEDICARE ==
--- NOTE | 2022-11-02 10:22 | US ---
EXAMINATION TYPE: US kidneys/renal and bladder DATE OF EXAM: 11/02/2022 COMPARISON: US 2019 CLINICAL HISTORY: R31.0 GROSS HEMATURIA. Hematuria EXAM MEASUREMENTS: Right Kidney: 9.9 x 5.2 x 5.3 cm Left Kidney: 11.6 x 6.1 x 4.7 cm Right Kidney: No hydronephrosis or masses seen Left Kidney: No hydronephrosis or masses seen Bladder: wnl Bilateral Jets seen: right jet not seen, left jet seen IMPRESSION: 1. No acute renal ultrasound abnormality.
== END | disposition home or self-care (01) ==
LOC: RADUSWWP 08:50
PROVIDERS: ATTEND Urology
DX: R31.0 Gross hematuria (principal)
CPT/HCPCS: 76770

== ENCOUNTER → 2023-01-10 | Outpatient (CLI) | payer MEDICARE ==
[2023-01-10 11:15] LABS: Testosterone <10.00 ng/mL
[2023-01-12 07:23] LABS: Prostate Specific Antigen <0.14 ng/mL (0.00-6.50)
== END | disposition home or self-care (01) ==
LOC: LABWHC1 06:54
PROVIDERS: ATTEND Urology
DX: Z00.00 Encounter for general adult medical examination without abnormal findings (principal); C61 Malignant neoplasm of prostate
CPT/HCPCS: 36415; 84153; 84403

== ENCOUNTER → 2023-01-11 | Outpatient (CLI) | payer MEDICARE ==
[2023-01-11 11:21] LABS: Basophils # (A) 0.03 X 10*3/uL (0.00-0.10); Basophils % (A) 0.8 %; Eosinophils # (A) 0.18 X 10*3/uL (0.04-0.35); Lymphocytes # (A) 1.33 X 10*3/uL (0.90-5.00); MCH 34.8 pg (27.0-32.0); MCHC 34.2 d/dL (32.0-37.0); MCV 101.6 FL (80.0-97.0); Mean Platelet Volume 10.5 FL (9.5-12.2); Monocytes # (A) 0.38 X 10*3/uL (0.20-1.00); Monocytes % (A) 10.6 %; NRBC Per 100 WBC 0 X 10*3/uL (0.00-0.01); Neutrophils # (A) 1.66 X 10*3/uL (1.80-7.70); Neutrophils % (A) 46.3 %; Platelet Count 212 X 10*3/uL (140-440); RBC 3.74 X 10*6/uL (4.40-5.60); RDW 12.2 % (11.5-14.5); WBC 3.59 X 10*3/uL (4.50-10.00)
[2023-01-11 16:12] LABS: ALT 17 U/L (10-49); AST 22 U/L (14-35); Albumin 4.4 d/dL (3.8-4.9); Alkaline Phosphatase 86 U/L (41-126); Blood Urea Nitrogen 16.9 mg/dL (9.0-27.0); Calcium 9.8 mg/dL (8.7-10.3); Carbon Dioxide 29.3 mmol/L (21.6-31.8); Chloride 101 mmol/L (96-109); Chol/HDL Ratio 5.14 Ratio; Glucose 83 mg/dL (70-110); LDL Cholesterol,Calculated 156.5 mg/dL (0.0-131.0); Sodium 140 mmol/L (135-145); T4, Free (Free Thyroxine) 1.33 ng/dL (0.80-1.80); Total Bilirubin 0.7 mg/dL (0.3-1.2); Total Protein 6.4 d/dL (6.2-8.2)
== END | disposition home or self-care (01) ==
LOC: LABWHC1 07:55
PROVIDERS: ATTEND Family Medicine
DX: Z00.00 Encounter for general adult medical examination without abnormal findings (principal)
CPT/HCPCS: 36415; 80053; 80061; 84439; 84443; 85025

== ENCOUNTER → 2023-04-24 | Outpatient (CLI) | payer MEDICARE ==
[2023-04-24 22:25] LABS: Testosterone <10.00 ng/dL (86.98-780.10)
== END | disposition home or self-care (01) ==
LOC: LABWHC1 14:30
PROVIDERS: ATTEND Urology
DX: C61 Malignant neoplasm of prostate (principal)
CPT/HCPCS: 36415; 84153; 84403

== ENCOUNTER → 2023-10-17 | Outpatient (CLI) | payer MEDICARE ==
[2023-10-17 20:45] LABS: Prostate Specific Antigen 0.02 ng/mL (0.000-6.500)
[2023-10-17 20:48] LABS: Testosterone <10.00 ng/dL (86.98-780.10)
== END | disposition home or self-care (01) ==
LOC: LABWHC1 14:28
PROVIDERS: ATTEND Urology
DX: C61 Malignant neoplasm of prostate (principal)
CPT/HCPCS: 36415; 84153; 84403

== ENCOUNTER → 2023-12-08 | Outpatient (CLI) | payer MEDICARE ==
--- NOTE | 2023-12-11 11:55 | BD ---
EXAMINATION TYPE: Axial Bone Density DATE OF EXAM: 12/08/2023 CLINICAL HISTORY: 78 years old Male. ICD-10 CODE: C61 MALIGNANT NEOPLASM OF PROSTATE Height: 72.5 in Weight: 215 lbs MEDICATIONS: Osteoporosis Medications: not now Which medication: Prolia How Lon years EXAM MEASUREMENTS: Bone mineral densitometry was performed using the [employer] System. Bone mineral density as measured about the Lumbar spine is: ----- L1-L4(G/cm2): 1.392 T Score Values are as follows: ----- L1: 1.5 ----- L2: 1.6 ----- L3: 2.5 ----- L4: 1.4 ----- L1-L4: 1.8 Z Score Values are as follows: ----- L1: 1.2 ----- L2: 1.2 ----- L3: 2.2 ----- L4: 1.0 ----- L1-L4: 1.4 Bone mineral density has: Decreased -13.7% since study of: 09/02/2014 Bone mineral density about the R hip (g/cm2): 0.932 Bone mineral density about the L hip (g/cm2): 0.930 T Score values are as follows: -----R Neck: -0.3 -----L Neck: 0.0 -----R Total: -0.6 -----L Total: -0.6 Z Score values are as follows: -----R Neck: 0.4 -----L Neck: 0.7 -----R Total: -0.6 -----L Total: -0.7 Bone mineral density has: Decreased -20.2% since study of: 09/02/2014 FRAX%s: The graph provided illustrates a 5.3% chance for a major osteoporotic fx and a 1.2% chance fo r the hips probability for fx in 10 years time. IMPRESSION: Normal (Values between +1 and -1 indicate normal bone mass). Consider repeating this study in 5 year s or sooner if there is some new clinical indication. NOTE: T-SCORE=SD OF THE YOUNG ADULT MEAN.
== END | disposition home or self-care (01) ==
LOC: RADBDWWP 14:22
PROVIDERS: ATTEND Urology
DX: C61 Malignant neoplasm of prostate (principal)
CPT/HCPCS: 77080

== ENCOUNTER → 2023-12-19 | Outpatient (CLI) | payer MEDICARE ==
[2023-12-19 10:48] LABS: Basophils # (A) 0.04 X 10*3/uL (0.00-0.10); Basophils % (A) 0.9 %; Eosinophils # (A) 0.28 X 10*3/uL (0.04-0.35); Eosinophils % (A) 6.3 %; HCT 39.6 % (39.6-50.0); HGB 13.5 g/dL (13.0-17.0); Lymphocytes # (A) 1.76 X 10*3/uL (0.90-5.00); Lymphocytes % (A) 39.6 %; MCH 34.5 pg (27.0-32.0); MCHC 34.1 g/dL (32.0-37.0); MCV 101.3 FL (80.0-97.0); Mean Platelet Volume 10.7 FL (9.5-12.2); Monocytes # (A) 0.59 X 10*3/uL (0.20-1.00); Monocytes % (A) 13.3 %; NRBC Per 100 WBC 0 X 10*3/uL (0.00-0.01); Neutrophils # (A) 1.76 X 10*3/uL (1.80-7.70); Neutrophils % (A) 39.7 %; Platelet Count 226 X 10*3/uL (140-440); RBC 3.91 X 10*6/uL (4.40-5.60); RDW 12.3 % (11.5-14.5); WBC 4.44 X 10*3/uL (4.50-10.00)
[2023-12-19 14:45] LABS: ALT 16 U/L (10-49); AST 26 U/L (14-35); Albumin 4.7 g/dL (3.8-4.9); Albumin/Globulin Ratio 2.14 Ratio (1.60-3.17); Alkaline Phosphatase 83 U/L (41-126); BUN/Creat Ratio 16.91 Ratio (12.00-20.00); Blood Urea Nitrogen 18.6 mg/dL (9.0-27.0); Calcium 9.8 mg/dL (8.7-10.3); Carbon Dioxide 28.5 mmol/L (21.6-31.8); Chloride 100 mmol/L (96-109); Chol/HDL Ratio 5.64 Ratio; Globulin 2.2 g/dL (1.6-3.3); Glucose 78 mg/dL (70-110); LDL Cholesterol,Calculated 162.1 mg/dL (0.0-131.0); Potassium 4.5 mmol/L (3.5-5.5); Sodium 139 mmol/L (135-145); T4, Free (Free Thyroxine) 1.31 ng/dL (0.80-1.80); Total Bilirubin 0.6 mg/dL (0.3-1.2); Total Protein 6.9 g/dL (6.2-8.2)
== END | disposition home or self-care (01) ==
LOC: LABWHC1 06:59
PROVIDERS: ATTEND Family Medicine
DX: Z00.00 Encounter for general adult medical examination without abnormal findings (principal); C61 Malignant neoplasm of prostate; R41.3 Other amnesia
CPT/HCPCS: 36415; 80053; 80061; 84439; 84443; 85025

== ENCOUNTER → 2024-05-01 | Outpatient (CLI) | payer MEDICARE ==
[2024-05-02 03:19] LABS: Prostate Specific Antigen 0.02 ng/mL (0.000-6.500)
[2024-05-02 03:26] LABS: Testosterone <10.00 ng/dL (86.98-780.10)
== END | disposition home or self-care (01) ==
LOC: LABWHC1 14:37
PROVIDERS: ATTEND Urology
DX: C61 Malignant neoplasm of prostate (principal)
CPT/HCPCS: 36415; 84153; 84403

== ENCOUNTER → 2024-09-09 | Outpatient (CLI) | payer MEDICARE ==
[2024-09-09 21:03] LABS: Prostate Specific Antigen <0.01 ng/mL (0.000-6.500); Testosterone <10.00 ng/dL (86.98-780.10)
== END | disposition home or self-care (01) ==
LOC: LABWHC1 14:38
PROVIDERS: ATTEND Urology
DX: C61 Malignant neoplasm of prostate (principal)
CPT/HCPCS: 36415; 84153; 84403

== ENCOUNTER → 2024-11-08 | Outpatient (CLI) | payer MEDICARE ==
[2024-11-08 10:55] LABS: HGB 13.3 g/dL (13.0-17.0); MCH 34.4 pg (27.0-32.0); MCHC 34.1 g/dL (32.0-37.0); MCV 100.8 FL (80.0-97.0); Mean Platelet Volume 10.6 FL (9.5-12.2); NRBC Per 100 WBC 0 X 10*3/uL (0.00-0.01); Platelet Count 233 X 10*3/uL (140-440); RBC 3.87 X 10*6/uL (4.40-5.60); RDW 12.1 % (11.5-14.5); WBC 3.85 X 10*3/uL (4.50-10.00)
[2024-11-08 10:56] LABS: Basophils # (A) 0.04 X 10*3/uL (0.00-0.10); Eosinophils # (A) 0.22 X 10*3/uL (0.04-0.35); Eosinophils % (A) 5.7 %; Lymphocytes # (A) 1.59 X 10*3/uL (0.90-5.00); Lymphocytes % (A) 41.3 %; Monocytes # (A) 0.56 X 10*3/uL (0.20-1.00); Monocytes % (A) 14.5 %; Neutrophils # (A) 1.43 X 10*3/uL (1.80-7.70); Neutrophils % (A) 37.2 %
[2024-11-08 11:08] LABS: ALT 19 U/L (10-49); AST 30 U/L (14-35); Albumin 4.6 g/dL (3.8-4.9); Albumin/Globulin Ratio 2.19 Ratio (1.60-3.17); Alkaline Phosphatase 94 U/L (41-126); BUN/Creat Ratio 16.18 Ratio (12.00-20.00); Blood Urea Nitrogen 17.8 mg/dL (9.0-27.0); Calcium 9.5 mg/dL (8.7-10.3); Carbon Dioxide 26.3 mmol/L (21.6-31.8); Chloride 99 mmol/L (96-109); Chol/HDL Ratio 5.13 Ratio; Globulin 2.1 g/dL (1.6-3.3); Glucose 89 mg/dL (70-110); LDL Cholesterol,Calculated 162.6 mg/dL (0.0-131.0); Potassium 4.5 mmol/L (3.5-5.5); Sodium 137 mmol/L (135-145); Total Bilirubin 0.6 mg/dL (0.3-1.2); Total Protein 6.7 g/dL (6.2-8.2)
== END | disposition home or self-care (01) ==
LOC: LABWHC1 07:20
PROVIDERS: ATTEND Family Medicine
DX: K64.9 Unspecified hemorrhoids (principal); E78.5 Hyperlipidemia, unspecified
CPT/HCPCS: 36415; 80053; 80061; 84439; 84443; 85025